=== PATIENT | male | born 1960 | race African-American/Black ===

== ENCOUNTER 2021-06-15 07:58 | Inpatient (IN) | payer MEDICAID ==
[~2021-06-15] VITALS: Ht 165.1 cm; Wt 63.5 kg
[2021-06-15] MEDS ORDERED: IPRATROPIUM BROMIDE (0.02%) 0.5MG/2.5ML NEB HHN STA (08:57)
[2021-06-15] MEDS ORDERED: ALBUTEROL (0.083%) 2.5MG/3ML NEB HHN STA (08:57)
[2021-06-15] MEDS ORDERED: DEXAMETHASONE 10 MG/ML VIAL IV ONE (09:00)
[2021-06-15] MEDS ORDERED: TETANUS, DIPHTHERIA, PERTUSSIS VAC/PF 0.5ML (>10YR OLD) IM ONE (09:00)
[2021-06-15 10:13] LABS: CHLORIDE 109 mEq/L (98-107)
[2021-06-15 10:16] LABS: BASOPHILS % 0.2 % (0.0-2.0); EOSINOPHILS % 0.6 % (0.0-5.0); HEMATOCRIT. 36.3 % (42.0-52.0); LYMPHOCYTES % 12.6 % (20.0-50.0); MEAN CORPUSCULAR HEMOGLOBIN 37.4 pg (28.0-32.0); MEAN CORPUSCULAR VOLUME 113.2 fL (80.0-94.0); MEAN PLATELET VOLUME 7.7 fl (7.4-10.4); MONOCYTES % 4.4 % (2.0-8.0); NEUTROPHILS % 82.2 % (40.0-76.0); PLATELET 294 x1000/uL (130-400); RED CELL DISTRIBUTION WIDTH 27.4 % (11.6-14.6)
[2021-06-15 10:17] LABS: INR 1.3; PROTHROMBIN TIME 13.8 sec (9.6-11.0)
[2021-06-15 10:18] LABS: ETHANOL BLOOD < 10 mg/dL
[2021-06-15 10:22] LABS: CREATINE KINASE 200 IU/L (39-308)
[2021-06-15] MEDS ORDERED: FUROSEMIDE 40MG/4ML VIAL IVP NR (10:45)
[2021-06-15] MEDS ORDERED: ASPIRIN 81MG TABLET PO NR (10:45)
[2021-06-15] MEDS ORDERED: NITROGLYCERIN OINT 1GM/INCH UDPKT TD NR (10:45)
[2021-06-15 12:21] LABS: CLARITY URINE CLEAR (CLEAR); COLOR URINE DARK YELLOW (YELLOW); KETONES URINE TRACE (NEGATIVE); LEUKOCYTE ESTERASE URINE NEGATIVE (NEGATIVE); NITRITE URINE NEGATIVE (NEGATIVE); OCCULT BLOOD URINE NEGATIVE (NEGATIVE); PH URINE 5.5 (4.5-8.0); PROTEIN URINE 1+ (NEGATIVE); SPECIFIC GRAVITY URINE 1.026 (1.005-1.030)
[2021-06-15 12:37] LABS: *BENZODIAZEPINES SCREEN URINE NEGATIVE (NEGATIVE); PHENCYCLIDINE URINE SCREEN NEGATIVE (NEGATIVE)
[2021-06-15 12:39] LABS: *COCAINE SCREEN URINE PRESUMTIVE POSITIVE (NEGATIVE); METHADONE URINE SCREEN NEGATIVE (NEGATIVE)
[2021-06-15 12:40] LABS: *BARBITURATES SCREEN URINE NEGATIVE (NEGATIVE)
[2021-06-15 12:45] LABS: CANNABINOID URINE SCREEN NEGATIVE (NEGATIVE)
[2021-06-15 12:48] LABS: *AMPHETAMINES SCREEN URINE NEGATIVE (NEGATIVE)
[2021-06-15 12:54] LABS: OPIATES URINE SCREEN NEGATIVE (NEGATIVE)
[2021-06-15] MEDS ORDERED: ONDANSETRON HCL 4MG/2ML INJ IV PRN (13:45)
[2021-06-15] MEDS ORDERED: GUAIFENESIN 200MG/10ML SUGAR FREE UDC PO PRN (13:45)
[2021-06-15] MEDS ORDERED: ACETAMINOPHEN 325MG TABLET PO PRN (13:45)
[2021-06-15] MEDS ORDERED: DOCUSATE SODIUM 100MG CAPSULE PO PRN (13:45)
[2021-06-15] MEDS ORDERED: MAGNESIUM/ALUMINUM HYDROXIDE/SIMETHICONE 30ML UDC PO PRN (13:45)
[2021-06-15] MEDS ORDERED: HYDROCODONE/ACETAMINOPHEN 5/325MG TABLET PO PRN (13:45)
[2021-06-15] MEDS ORDERED: IPRATROPIUM/ALBUTEROL 0.5-3(2.5)MG/3ML NEB HHN PRN (13:45)
[2021-06-15] MEDS ORDERED: KETOROLAC 15MG/ML VIAL IV PRN (14:00)
[2021-06-15] MEDS ORDERED: NALOXONE HCL 0.4MG/ML VIAL IV PRN (14:00)
[2021-06-15 14:01] LABS: PLATELET ESTIMATE NORMAL
[2021-06-15] MEDS: AMLODIPINE 10MG TABLET PO SCH (14:24)
[2021-06-15] MEDS: ENOXAPARIN 40MG/0.4ML SYR SUBCUT SCH (14:25)
[2021-06-15] MEDS: CLONIDINE 0.1MG TABLET PO PRN ×2 (17:54→18:02)
[2021-06-15 18:39] VITALS: BP 156/117
[2021-06-15 20:00] VITALS: BP 148/111
[2021-06-15 21:00] VITALS: BP 156/117
[2021-06-15] MEDS: METOPROLOL TARTRATE 25MG TABLET PO SCH (21:17)
[2021-06-16] VITALS: BP 116/84
[2021-06-16] MEDS: CLONIDINE 0.1MG TABLET PO PRN (00:09)
[2021-06-16 04:00] VITALS: BP 101/96
[2021-06-16 07:36] LABS: CHLORIDE 107 mEq/L (98-107)
[2021-06-16 07:47] LABS: LDL CHOLESTEROL 67 mg/dL (5-100)
[2021-06-16 07:48] LABS: HDL CHOLESTEROL 52 mg/dL (40-59)
[2021-06-16 08:00] VITALS: BP 117/88
[2021-06-16] MEDS ORDERED: ASPIRIN 81MG EC TABLET PO SCH (09:00)
[2021-06-16] MEDS: AMLODIPINE 10MG TABLET PO SCH (09:08)
[2021-06-16] MEDS: METOPROLOL TARTRATE 25MG TABLET PO SCH (09:08)
[2021-06-16 12:00] VITALS: BP 116/80
[2021-06-16] MEDS ORDERED: PNEUMOCOCCAL 23-VAL P-SAC VAC 0.5 ML IM ONE (12:00)
[2021-06-16 12:03] VITALS: BP 113/91
[2021-06-16] MEDS: ENOXAPARIN 40MG/0.4ML SYR SUBCUT SCH (14:00)
== END 2021-06-16 15:59 | disposition home or self-care (01) | DRG 203 ==
LOC: EDSEX 07:58 → EDBD 07:58 → ER 08:27 → MICUSO 11:06 → 6WST 17:35
PROVIDERS: ADMIT Hospitalist; ATTEND Hospitalist
DX: M94.0 Chondrocostal junction syndrome [Tietze] (principal); I11.0 Hypertensive heart disease with heart failure; I50.9 Heart failure, unspecified; F14.10 Cocaine abuse, uncomplicated; Z20.822 Contact with and (suspected) exposure to COVID-19; F17.200 Nicotine dependence, unspecified, uncomplicated; Z82.49 Family history of ischemic heart disease and other diseases of the circulatory system; Z71.51 Drug abuse counseling and surveillance of drug abuser
CPT/HCPCS: 36415; 71045; 80053; 80061; 80305; 80320; 81003; 82550; 83605; 83880; 84145; 84484; 85025; 90715; 93005; 94640; 99291; J1100; J1650; J1940; U0003; U0005; G0480